=== PATIENT | male | born 1960 | race Caucasian/White ===

== ENCOUNTER 2016-12-25 10:58 | Inpatient (IN) | payer MEDICAID, OTHER ==
[~2016-12-25] VITALS: Ht 182.9 cm; Wt 88.4 kg
[2016-12-25] MEDS ORDERED: ONDANSETRON 2MG/ML, 2ML ONE ×2 (11:27→23:21)
[2016-12-25] MEDS ORDERED: HYDROmorphone 1 MG/ML, 1ML ONE ×2 (11:27→11:51)
[2016-12-25] MEDS ORDERED: CEFAZOLIN PMX 1GM/50ML 50 ML ONE (11:27)
[2016-12-25] MEDS ORDERED: SODIUM CHLORIDE 0.9% 1,000ML IVBOLUS ONE (11:30)
[2016-12-25] MEDS ORDERED: ONDANSETRON 2MG/ML, 2ML IVPush ONE (11:30)
[2016-12-25] MEDS ORDERED: SODIUM CHLORIDE FLUSH 10ML SYR IVF ONE (11:30)
[2016-12-25] MEDS: HYDROmorphone 1 MG/ML, 1ML IVPush PRN ×2 (11:31→11:57)
[2016-12-25] MEDS ORDERED: HYDR-879 PO (11:39)
[2016-12-25 11:47] LABS: HEMATOCRIT 47.6 % (39.2-51.8); HEMOGLOBIN 16.3 g/dL (13.7-18.0)
[2016-12-25 11:57] LABS: BLOOD UREA NITROGEN 13 mg/dL (7-18)
[2016-12-25] MEDS ORDERED: CEFAZOLIN PMX 1GM/50ML 50 ML IV ONE (12:30)
[2016-12-25] MEDS ORDERED: NICOTINE 21 MG/24 HR PATCH.TD24 ONE (13:26)
[2016-12-25] MEDS ORDERED: morphine SULFATE 10 MG/ML, 1ML ONE (13:27)
[2016-12-25] MEDS ORDERED: NICOTINE 21 MG/24 HR PATCH.TD24 TD ONE (13:30)
[2016-12-25] MEDS ORDERED: MORPHINE SULFATE 4 MG/ML, 1ML IVPush PRN (13:30)
[2016-12-25 14:41] VITALS: BP 131/77
[2016-12-25] MEDS ORDERED: OXYC5CAP2 PO (14:59)
[2016-12-25] MEDS: HYDROmorphone 1 MG/ML, 1ML IV PRN ×2 (18:04→19:07)
[2016-12-25] MEDS ORDERED: LORazepam 2 MG/ML, 1ML ONE (19:39)
[2016-12-25 20:00] VITALS: BP 120/77
[2016-12-25] MEDS ORDERED: LORazepam 2 MG/ML, 1ML IVPush ONE (20:00)
[2016-12-25] MEDS ORDERED: MIDAZOLAM 1 MG/ML, 2ML ONE (21:20)
[2016-12-25] MEDS ORDERED: FENTANYL PF 250 MCG/5ML ONE (22:33)
[2016-12-25] MEDS ORDERED: BUPIVACAINE/PF 0.5% INFIL ONE (23:08)
[2016-12-25] MEDS ORDERED: PROPOFOL 10 MG/ML, 20ML ONE (23:21)
[2016-12-25] MEDS ORDERED: DEXAMETHASONE 4 MG/ML, 1ML ONE (23:21)
[2016-12-25] MEDS ORDERED: CEFAZOLIN 1,000 MG ONE (23:21)
[2016-12-25] MEDS ORDERED: METOPROLOL 1 MG/ML, 5ML IV PRN (23:30)
[2016-12-25] MEDS ORDERED: PROMETHAZINE 25 MG/ML, 1ML IV PRN (23:30)
[2016-12-25] MEDS ORDERED: ALBUTEROL SULFATE 2.5 MG/3 ML NPPB PRN (23:30)
[2016-12-25] MEDS ORDERED: HYDROmorphone 1 MG/ML, 1ML IV PRN (23:30)
[2016-12-25] MEDS ORDERED: ACETAMINOPHEN 325 MG TABLET PO PRN (23:30)
[2016-12-25] MEDS ORDERED: OXYcodone 5 MG/5 ML ORAL.SOL UDC PO PRN (23:30)
[2016-12-25] MEDS ORDERED: hydrALAzine 20 MG/ML, 1ML IV PRN (23:30)
[2016-12-25] MEDS ORDERED: LORazepam 2 MG/ML, 1ML IVPush PRN (23:30)
[2016-12-25] MEDS ORDERED: FENTANYL PF 100 MCG/2ML IV PRN (23:30)
[2016-12-25] MEDS ORDERED: MEPERIDINE/PF 25MG/0.5ML IVPush PRN (23:30)
[2016-12-26] MEDS ORDERED: CEFAZOLIN PMX 1GM/50ML 50 ML IV SCH
[2016-12-26] MEDS ORDERED: ACETAMINOPHEN 650 MG/20.3 ML UDC ONE
[2016-12-26] MEDS ORDERED: DIPHTHERIA-TETANUS ADULT 0.5ML IM-VACC ONE
[2016-12-26] MEDS ORDERED: OXYcodone 5 MG/5 ML ORAL.SOL UDC ONE
[2016-12-26 02:34] VITALS: BP 121/83
[2016-12-26] MEDS: HYDROmorphone 1 MG/ML, 1ML IV PRN (03:54)
[2016-12-26 06:23] VITALS: BP 136/88
[2016-12-26] MEDS ORDERED: DOCU-131 PO (08:48)
[2016-12-26] MEDS ORDERED: CEPH-368 PO (08:49)
== END 2016-12-26 09:30 | disposition home or self-care (01) | DRG 512 ==
LOC: OR 12:30 → EDIP 12:31 → OR 13:18 → 4NOR 14:02 → DCLOUNGE 12-26 09:15
PROVIDERS: ADMIT Orthopaedic Surgery; ATTEND Orthopaedic Surgery
PROC: 0PSJ04Z Reposition Left Radius with Internal Fixation Device, Open Approach (ICD-10-PCS; principal; 2016-12-25 21:45)
DX: S52.502B Unspecified fracture of the lower end of left radius, initial encounter for open fracture type I or II (principal); F17.200 Nicotine dependence, unspecified, uncomplicated; M19.90 Unspecified osteoarthritis, unspecified site; W11.XXXA Fall on and from ladder, initial encounter; Y92.89 Other specified places as the place of occurrence of the external cause; Y99.0 Civilian activity done for income or pay; Y93.89 Activity, other specified
CPT/HCPCS: 29125; 36415; 71010; 76001; 80048; 82040; 85025; 90714; 93005; 96361; 96365; 96375; C1713; J0690; J1100; J1170; J2250; J2405; J2704; J3010; J3490; J2060; J7030